=== PATIENT | male | born 1995 | race Caucasian/White ===

== ENCOUNTER 2021-08-08 08:15 | Emergency (ER) | payer OTHER, SELFPAY ==
[2021-08-08 08:15] VITALS: BP 148/82; PULSE 78; RESP 18; TEMP 36.3; O2SAT 100
--- NOTE | 2021-08-08 08:19 | ED.NECK ---
HPI - Neck Pain/Injury General Chief Complaint: Neck Pain/Injury Stated Complaint: Neck Pain Time Seen by Provider: 08/08/21 08:20 Source: patient, family and RN notes reviewed Mode of arrival: ambulatory Limitations: no limitations History of Present Illness HPI Narrative: 26-year-old male presents to the [facility] with complaints of right lateral neck pain, no midline tenderness. Patient reports that he sneezed this morning and felt a muscle pull in the right side of his neck. Also reports when he moves his neck up and down left and right that he feels a muscle spasm. No numbness or tingling in his extremities. No loss retention of bowel or bladder. Has full range of motion of both arms. Has full range of motion of neck but pain with movement up and down and with turning to the right. Patient denies any significant medical history MD complaint: neck pain Onset (ago): hour(s) Place: home Radiation: right lateral Severity: mild Quality: aching and spasming Duration: intermittent Exacerbating factors: movement of neck Context: other (Sneeze) Associated symptoms: none Treatments prior to arrival: none Related Data Allergies Allergy/AdvReac Type Severity Reaction Status Date / Time amoxicillin Allergy Mild Rash Verified 08/08/21 08:28 clindamycin Allergy Mild Rash Verified 08/08/21 08:28 Review of Systems Review of Systems: All systems reviewed & are unremarkable except as noted in HPI and below Constitutional: Constitutional: Reports no additional constitutional complaints, Denies chills, Denies fever(s), Denies headache(s) and Denies weakness Eyes: Eyes: Reports no additional eye complaints ENT: Reports system reviewed and no additional complaints, except as documented, Denies vertigo, Denies dizziness and Denies headache(s) Cardiovascular: Cardiovascular: Reports no additional cardiovascular complaints, Denies chest pain, Denies syncope and Denies dyspnea Respiratory: Respiratory: Reports no additional respiratory complaints, Denies cough and Denies dyspnea Gastrointestinal: Gastrointestinal: Reports no additional gastrointestinal complaints, Denies abdominal pain, Denies nausea and Denies vomiting Musculoskeletal: Musculoskeletal: Reports as per HPI, Denies arthralgias, Denies joint swelling, Denies muscle weakness, Reports neck pain (Right lateral), Denies numbness, Reports stiffness and Denies tingling Integumentary/Breasts: Skin/Breast: Reports system reviewed and no additional complaints, except as docu Neurologic: Reports system reviewed and no additional complaints, except as documented, Denies confusion, Denies vertigo, Denies dizziness, Denies syncope, Denies headache(s), Denies focal weakness, Denies numbness and Denies weakness Psychiatric: Psychiatric: Reports no additional psychiatric complaints and Denies confusion Allergic/Immunologic: Allergic/Immunologic: Reports no additional allergic/immunologic complaints PMFSH Past Medical History Medical History (Updated 08/08/21 @ 08:59 by Yue Crane) No significant medical problems Surgical History Surgical History (Updated 08/08/21 @ 08:59 by Yue Crane) H/O hand surgery Orthopedic, fingers 4, 5 Social History Social History (Updated 08/08/21 @ 08:59 by Yue Crane) Gender identity (if verbalized by the patient): Male Comments At the time of my signature, I reviewed and agree with the nursing past medical, surgical, social, and family history. There is no relevant family history pertinent to the patient complaint. Exam Const: General: healthy appearing, no acute distress and alert Nutritional Appearance: well nourished Orientation/consciousness: patient oriented x3 and No confusion Limitations: no limitations HENMT: Head: normal to inspection Ears: external ears normal, TM's normal bilaterally and EAC's normal Eyes: Conjunctivae: conjunctivae normal Pupils: Equal, round and reactive pupils present Neck: Neck: normal visua
== END 2021-08-08 08:35 | disposition home or self-care (01) ==
PROVIDERS: Emergency Provider Nurse Practitioner; PCP Family Medicine
DX: S16.1XXA Strain of muscle, fascia and tendon at neck level, initial encounter (principal); X50.9XXA Other and unspecified overexertion or strenuous movements or postures, initial encounter
CPT/HCPCS: 99203; G0463

== ENCOUNTER 2021-12-07 17:20 | Emergency (ER) | payer OTHER, SELFPAY ==
[2021-12-07 17:27] VITALS: BP 123/80; PULSE 82; RESP 16; TEMP 36.9; O2SAT 99
[2021-12-07 17:28] VITALS: BP 123/80; PULSE 82; RESP 16; TEMP 36.9; O2SAT 99
--- NOTE | 2021-12-07 17:41 | ED.URI ---
HPI - URI/Sore Throat General Chief Complaint: Upper Respiratory Infection Stated Complaint: SORE THROAT Source: patient Mode of arrival: ambulatory Limitations: no limitations History of Present Illness HPI Narrative: 26 y/o male presented for c/o sore throat and fever x4 days. States his fever was up to 100 at home, he took Tylenol. Also endorses sinus congestion and postnasal drainage. He denies cough, headache, nausea, or shortness of breath. Took 2 negative covid tests at home. Denies sick contacts. He has not vaccinated for COVID or flu. He is taken Zyrtec and Sudafed for symptoms. Rates pain 09/25. Hx strep throat 2018. Related Data Allergies Allergy/AdvReac Type Severity Reaction Status Date / Time amoxicillin Allergy Mild Rash Verified 08/08/21 08:28 clindamycin Allergy Mild Rash Verified 08/08/21 08:28 Review of Systems Review of Systems: CONSTITUTIONAL: Denies body aches EYES: Denies visual changes, redness, or discharge. ENT: See HPI you CARDIOVASCULAR: Denies chest pain, palpitations, or edema. RESPIRATORY: Denies cough or dyspnea. MUSCULOSKELETAL: Denies back pain, joint pain, or myalgia. NEUROLOGIC: Denies headache, numbness, tingling, or weakness. All systems reviewed & are unremarkable except as noted in HPI and below PMFSH Past Medical History Medical History No significant medical problems Surgical History Surgical History H/O hand surgery Orthopedic, fingers 4, 5 Social History Social History Gender identity (if verbalized by the patient): Male Comments At time of signature, I have reviewed and agree with nursing past medical, surgical, social and family history unless otherwise noted. Please see nursing chart for further information. There is no relevant family history pertinent to the presenting complaint Exam Narrative: GENERAL: Well-appearing EYES: EOMI. No redness or drainage. Conjunctivae normal. ENT: Mucous membranes pink and moist. No rhinorrhea. Right TM erythematous, Left TM normal. Throat erythematous, tonsils enlarged 2+ without exudate. Uvula midline. NECK: Normal AROM. Supple. No lymphadenopathy. CHEST: No respiratory distress. Clear to auscultation. HEART: Regular rate and rhythm. No murmur appreciated. Normal peripheral pulses. SKIN: Warm, dry, no rash. Capillary refill normal. Normal skin turgor. PSYCH: Normal affect. Course Course Emergency Course: Patient is aware of diagnosis, understands and agrees to treatment plan. Anticipatory guidance given. Patient agrees to follow-up as directed and is aware of reasons to seek care at the emergency department. Portions of this record may have been created with voice recognition software Level of Care: Express Care Visit Vital Signs Vital signs: Vital Signs Temperature 98.5 F 12/07/21 17:27 Pulse Rate 82 12/07/21 17:27 Respiratory Rate 16 12/07/21 17:27 Blood Pressure 123/80 12/07/21 17:27 Pulse Oximetry 99 12/07/21 17:27 Oxygen Delivery Room Air 12/07/21 17:27 Temperature 98.5 F 12/07/21 17:28 Pulse Rate 82 12/07/21 17:28 Respiratory Rate 16 12/07/21 17:28 Blood Pressure 123/80 12/07/21 17:28 Pulse Oximetry 99 12/07/21 17:28 Oxygen Delivery Room Air 12/07/21 17:28 MDM - URI/Sore Throat MDM Narrative Medical decision making narrative: strep positive. advised supportive treatments. He is in stable condition and appropriate for outpatient treatment and follow-up. Differential Diagnosis Differential diagnosis: Likely upper respiratory infection, sinusitis, viral infection and pharyngitis Discharge Plan Discharge Clinical Impression: Strep pharyngitis Patient Disposition: Home, Self-Care Condition: Stable Instructions: Antibiotic Form, Strep Throat (ED) Additional Instruc
== END 2021-12-07 17:58 | disposition home or self-care (01) ==
PROVIDERS: Emergency Provider Nurse Practitioner Family
DX: J02.0 Streptococcal pharyngitis (principal)
CPT/HCPCS: 87880; 99213; G0463

== ENCOUNTER 2025-05-11 16:50 | Emergency (ER) | payer OTHER, SELFPAY ==
[2025-05-11 16:59] VITALS: BP 132/88; PULSE 101; RESP 18; TEMP 36.6; O2SAT 99
--- NOTE | 2025-05-11 17:37 | ED_ITS ---
HPI - URI/Sore Throat General Chief Complaint: Upper Respiratory Infection Stated Complaint: URI Time Seen by Provider: 05/11/25 17:27 Source: patient and RN notes reviewed Mode of arrival: ambulatory Limitations: no limitations History of Present Illness HPI Narrative: 30-year-old male patient complains today of one-week history of nasal congestion and cough. States he had some postnasal drainage and sore throat that has since resolved since onset. Denies shortness of breath or fever. States symptoms have been improving since onset but he does have some persistent pain in his throat that occurs with coughing. He has tried Mucinex, [place], DayQuil, NyQuil with some improvement. Denies history of asthma or COPD. He is a nonsmoker. Related Data Allergies Allergy/AdvReac Type Severity Reaction Status Date / Time amoxicillin Allergy Mild Rash Verified 05/11/25 17:04 clindamycin Allergy Mild Rash Verified 05/11/25 17:04 PMFSH Past Medical History Medical History No significant medical problems Surgical History Surgical History H/O hand surgery Orthopedic, fingers 4, 5 Social History Social History Gender identity (if verbalized by the patient): Male Comments At time of signature, I have reviewed and agree with nursing past medical, surgical, social and family history unless otherwise noted. Please see nursing chart for further information. There is no relevant family history pertinent to the presenting complaint Exam Narrative: GENERAL: Well-appearing, well-nourished, and in no acute distress. HEAD: Normocephalic, atraumatic. EYES: EOMI. No redness or drainage. Conjunctivae normal. ENT: Mucous membranes pink and moist. Nares congested with rhinorrhea. TMs normal bilaterally. Throat normal. Uvula midline. NECK: Normal AROM. Supple. No lymphadenopathy. CHEST: No respiratory distress. Clear to auscultation. HEART: Regular rate and rhythm. No murmur appreciated. EXTREMITIES: Normal range of motion. No edema. SKIN: Warm, dry, no rash. Capillary refill normal. Normal skin turgor. NEURO: No focal deficits. Alert and oriented x3. Gait steady. PSYCH: Normal affect. No signs of depression or anxiety. Course Course Level of Care: Express Care Visit Vital Signs Vital signs: Vital Signs Temperature 97.8 F 05/11/25 16:59 Pulse Rate 101 H 05/11/25 16:59 Respiratory Rate 18 05/11/25 16:59 Blood Pressure 132/88 05/11/25 16:59 Pulse Oximetry 99 05/11/25 16:59 Oxygen Delivery Room Air 05/11/25 16:59 Temperature 97.8 F 05/11/25 16:59 Pulse Rate 101 H 05/11/25 16:59 Respiratory Rate 18 05/11/25 16:59 Blood Pressure 132/88 05/11/25 16:59 Pulse Oximetry 99 05/11/25 16:59 Oxygen Delivery Room Air 05/11/25 16:59 Reviewed MDM - URI/Sore Throat MDM Narrative Medical decision making narrative: 30-year-old male patient complains today of one-week history of nasal congestion and cough. States he had some postnasal drainage and sore throat that has since resolved since onset. Denies shortness of breath or fever. States symptoms have been improving since onset but he does have some persistent pain in his throat that occurs with coughing. He has tried Mucinex, Africa, DayQuil, NyQuil with some improvement. Denies history of asthma or COPD. He is a nonsm oker. Physical exam includes nasal congestion but is otherwise negative. Patient states his symptoms have improved. Recommend taking anti-inflammatories such as Aleve or ibuprofen to help with his throat discomfort. Patient declines prescription for cough medicine. Agrees with plan. Vital signs stable. Anticipatory guidance given. Differential Diagnosis Differential diagnosis: Likely upper respiratory infection, viral infection, bronchitis and other (Pneumonia) Critical Care Time Critical Care Time Critical Care Time: No Discharge Plan Discharge Clinical Impression: Upper respiratory infection Qualifiers: URI type: unspecified URI Qualified Code(s): J06.9 - Acute upper respiratory infection, unspecified Patient Disposition: Home Condition: Stable Instructions: Upper Respiratory Infection (DC) Additional Instructions: Your symptoms are likely due to a viral illness, which is not treated with antibiotics. Virus symptoms can last for up to 7-10days. Take ibuprofen for pain or fever. Rest and stay hydrated. Follow up with your PCP in 5 days if symptoms are not improving. Go to the ER immediately if you develop shortness of breath, difficulty swallowing, or any other concerning symptoms. Patient Language: Chadian Follow-up/Referrals: UNKNOWN,DOCTOR [Primary Care Provider] Time of Disposition: 17:40
--- OUTSIDE RECORDS SUMMARY | 2025-05-11 18:32 | XMS_ITS | Clinical Summary ---
Author Organization [facility] Address [address] [place] [address] Care Team Providers Care Director Of Home Care Hospice Name Role Phone Kathryn Jones MD Primary Care Provider [phone] Source Comments [facility],non-owned Affiliates and Associated Physician Practices is amultiple site organization consisting of ambulatory clinics and hospital sitesin [place], [place], [place]. This disclosure is being madepursuant to the Care Everywhere program and may not contain all information available regarding this patient. Last updated 18.[facility] [employer] Allergies Active Allergy Reactions Criticality Noted Date Comments Amoxicillin Rash Medium 07/08/2018 Clindamycin Rash Medium 07/17/2018 Rash was noted to back and chest several days after having started on clindamycin; any further order of this has been avoided Medications * Be aware that medications may not be up to date on this document. Alwaysverify current medications with the patient. ibuprofen (MOTRIN) 200 MG tablet Take 2 tablets by mouth every 6 hours as needed 60 tablet 1 0 Active acetaminophen (TYLENOL) 325 MG tablet Take 1 tablet by mouth every 4 hours as needed for Fever or Pain Maximum allowable Acetaminophen amount = 4 Grams (4000 mg) / 24 hours. 60 tablet 1 0 Active PREVIDENT 5000 BOOSTER PLUS 1.1 % 0 Active Active Problems Problem Noted Date Diagnosed Date Stiffness of finger joint of right hand 12/01/19 19 Open displaced fracture of m iddle phalanx of right ring finger Open displaced fracture of m iddle phalanx of right little finger Extensor tendon laceration of finger with open w ound Immunizations Immunization Administration Dates Next Due TDAP (7yrs+) 07/08/2018 Social History Tobacco Use Types Packs/Day Years Used Date Smoking Tobacco: Never Smokeless Tobacco: Current Chew Tobacco Cessation:Counseling Given: No Alcohol Use Standard Drinks/Week Comments Yes 0 (1 standard drink = 0.6 oz pur e alcohol) sometimes Sex and Gender Information Value Date Recorded Sex Assigned at Not on file 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 Gender Identity Not on file Sexual Orientation Not on file Last Filed Vital Signs Vital Sign Reading Time Taken Comments Blood Pressure 130/83 10/13/2019 9:14 AM CDT Pulse 71 10/13/2019 9:14 AM CDT Temperature 36.2 C (97.1 F) 10/13/2019 9:14 AM CDT Respiratory Rate 20 06/26/2019 10:00 AM EDUCATION TEACHER Oxygen Saturation 99% 10/13/2019 9:14 AM CDT Inhaled Oxygen Concentration - - Weight 77.1 kg (170 lb) 10/13/2019 9:14 AM CDT Height 170.2 cm (5' 7) 10/13/2019 9:14 AM CDT Body Mass Index 26.63 10/13/2019 9:14 AM CDT Plan of Treatment Health Maintenance Due Date Last Done Comments HIV SCREENING 01/16/2008 HEPATITIS C SCREENING 01/11/2011 HEPATITIS B VACCINE (1 of 3 - 19+ 3-dose series) 01/16/2012 HPV VACCINE (1 - 3-dose SCDM series) 01/16/2020 DEPRESSION SCREENING 06/18/2024 COVID-19 VACCINE (2024-2 6 season) 2025 INFLUENZA VACCINE (#1) 2025 DTAP/TDAP/TD VACCINES (2 - T d or Tdap) 07/08/2028 07/08/2018 ZOSTER VACCINE (1 of 2) 2043 HIB VACCINE Aged Out No longer eligi ble based on patient's age to complete this topic MENINGOCOCCAL (Group B) VACC INE SHARED DECISION-MAKING Aged Out No longer eligibl e based on patient's age to complete this topic MENINGOCOCCAL GROUPS A/C/Y/W VACCINE Aged Out No longer eligible b ased on patient's age to complete this topic PNEUMOCOCCAL VACCINE Aged Out No long er eligible based on patient's age to complete this topic Medical Devices Implanted Type Area Sourcing Assistant Device Identifier Shelf Expiration Date Model / Serial / Lot Wire K .045in 6in 2 Troc Smth Fx Strl Implanted:Qty: 2 on 07/17/2018 by Ziyad Bell MD at [facility] Right: Finger [employer] 04/04/2022 [id number] / / Description:RIGHT RING FINGE R Wire K .045in 6in 2 Troc Smth Fx Strl Implanted:Qty: 1 on 07/17/2018 by Ziyad Bell MD at [facility] Right: Finger [employer] 04/04/2022 [id number] / / Description:RIGHT LITTLE FIN LANDON Wire K 0.9mm Implanted:Qty: 1 on 07/17/2018 by Ziyad Bell MD at [facility] Right: Finger [employer] 09/21/2021 [id number] / / Description:RIGHT LITTLE FIN LANDON Insurance [id number] GENERIC [facility] PAYOR GENERIC ANTHEM PAYOR GENERIC PAYOR GENERIC ANTHEM Advance Directives * Full Code (Latest Code Status on File) Date Activated Date Inactivated Comments 07/17/2018 12:54 PM 07/17/2018 11:13 PM Care Teams Director Of Home Care Hospice Relationship Specialty Start Date End Date Kathryn Jones MD [address] [facility] [address] [id number] PCP - General 07/15/18
--- OUTSIDE RECORDS SUMMARY | 2025-05-11 18:32 | XMS_ITS | Encounter Summary ---
Author Organization 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 Historical Provider Final Res ult documented in this encounter Visit Diagnoses Not on filedocumented in this encounter Care Teams Swimming Pool Cleaner Relationship Specialty Start Date End Date Kathryn Jones MD PCP - General Family Medicine 01/28/19 documented as of this encounter
--- OUTSIDE RECORDS SUMMARY | 2025-05-11 18:32 | XMS_ITS | Encounter Summary ---
Author Organization 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 Historical Provider Final Res ult documented in this encounter Visit Diagnoses Not on filedocumented in this encounter Care Teams Logistics Planning Engineer Relationship Specialty Start Date End Date Kathryn Jones MD PCP - General Family Medicine 01/28/19 documented as of this encounter
--- OUTSIDE RECORDS SUMMARY | 2025-05-11 18:32 | XMS_ITS | Clinical Summary ---
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 Gender Identity Not on file Sexual Orientation Not on file Plan of Treatment Health Maintenance Due Date Last Done Comments Hepatitis C Virus (HCV) Screening 1993 TdaP Immunization 1993 Hepatitis B Immunization (1 of 3 - 19+ 3-dose series) 01/16/2012 Human Papillomavirus (HPV) Immunization (1 - 3-dose SCDM series) 01/16/2020 Influenza Immunization (#1) 2025 SARS-COV-2 Immunization ( season) 2025 Respiratory Syncytial Virus (RSV) Immunization (Adult) (1 - 1-dose 75+ series) 01/16/2068 Meningococcal Immunization (ACWY) Aged Out No longer eligible based on patient's age to complete this topic Pneumococcal Immunization Combined Aged Out No longer eligible based on patient's age to complete this topic Rotavirus Immunization Aged Out No lo nger eligible based on patient's age to complete this topic
--- OUTSIDE RECORDS SUMMARY | 2025-05-11 18:32 | XMS_ITS | Clinical Summary ---
Author Organization [facility] Address [address] [place] [id number] Care Team Providers Care Hand Lens Polisher Name Role Phone Chase Fuentes MD Primary Care Prov ider Allergies Active Allergy Reactions Criticality Noted Date Comments Amoxicillin Rash Low 10/16/2021 Clindamycin Rash Low 10/16/2021 Medications meloxicam (MOBIC) 15 MG tabletIndication s:Pain of right lower extremity Take 1 tablet (15 mg total) by mouth daily. 20 tablet 4 Active Additional Information Patient not taking.Reported on 11/26/2024 fexofenadine-pse udoephedrine ER ([facility]) 180-240 MG TABLET SR 24 HR 24 hr tabletIndication s:Allergic rhinitis, unspecified seasonality, unspecified trigger Take 180 mg by mouth daily. 30 tablet 1 5 Active Immunizations Immunization Administration Dates Next Due Dtap ([facility]-Immune) 03/22/2016 Tdap (Generic) 07/08/2018 Family History Medical History Relation Comments No Known Problems Father Hypertension Mother Relation Status Comments Father Alive Mother Alive Social History Tobacco Use Types Packs/Day Years Used Date Smoking Tobacco: Never Passive Smoke Exposure: Never Smokeless Tobacco: Current Chew Tobacco Cessation:Ready to Q uit: Not Asked; Counseling Given: Not Answered Alcohol Use Standard Drinks/Week Comments Yes 0 (1 standard drink = 0.6 oz pur e alcohol) few times monthly PHQ-2 Answer Date Recorded Patient Health Questionnaire-2 Score 0 11/26/2024 Sex and Gender Information Value Date Recorded Sex Assigned at Not on file Legal Sex Male 7:30 PM CDT Gender Identity Not on file Sexual Orientation Not on file Last Filed Vital Signs Vital Sign Reading Time Taken Comments Blood Pressure 130/81 11/26/2024 11:02 AM CDT Pulse 78 11/26/2024 11:02 AM CDT Temperature 36.9 C (98.5 F) 11/26/2024 11:02 AM CDT Respiratory Rate 16 01/10/2024 7:39 AM CDT Oxygen Saturation 96% 11/26/2024 11:02 AM CDT Inhaled Oxygen Concentration - - Weight 85.7 kg (189 lb) 11/26/2024 11:02 AM CDT Height 167.6 cm (5' 6) 01/10/2024 7:39 AM CDT Body Mass Index 30.51 01/10/2024 7:39 AM CDT Plan of Treatment Health Maintenance Due Date Last Done Comments Annual Physical 01/16/1996 Hepatitis C 2011 Hepatitis B Vaccines (1 of 3 - 19+ 3-dose series) 01/16/2012 HPV Vaccines (1 - 3-dose SCD M series) 01/16/2020 COVID-19 Vaccine (1 - 2024-2 6 season) 2025 Influenza Adult (#1) 2025 DTaP, Tdap and Td Vaccines ( 3 - Td or Tdap) 07/08/2028 07/08/2018, 03/22/2016 PHQ-2 ([facility]) Completed 11/26/2024 Hepatitis A Vaccines Aged Out No long er eligible based on patient's age to complete this topic Meningococcal B Vaccine Aged Out No l onger eligible based on patient's age to complete this topic Meningococcal Vaccine Aged Out No fartun rosa eligible based on patient's age to complete this topic Pneumococcal Vaccine: Pediatrics (0 to 5 Years) and At-Risk Patients (6 to 49 Years) Aged Out No longer eligible b ased on patient's age to complete this topic RSV Immunizations Under 20 Months Aged Out No longer eligible b ased on patient's age to complete this topic [place] [address] [place] [address] Care Teams Hand Lens Polisher Relationship Specialty Start Date End Date Laz VII, Chase Zamorano MD [address] [place], [place] [id number] PCP - General FAMILY PRACTICE 03/02/25
--- OUTSIDE RECORDS SUMMARY | 2025-05-11 18:32 | XMS_ITS | Clinical Summary ---
Author Organization [facility] Address [address] [place] [address] Care Team Providers Care Warehouse Packaging Supervisor Name Role Phone Kathryn Jones MD Primary Care Provider [phone] Allergies Active Allergy Reactions Criticality Noted Date Comments Amoxicillin Rash Medium 07/08/2018 rash Clindamycin Rash Medium 07/17/2018 Rash was noted to back and chest several days after having started on clindamycin; any further order of this has been avoided Medications No known medications Active Problems Problem Noted Date Diagnosed Date Hypogonadism in male 07/24/2022 Chronic fatigue and malaise 07/24/2022 Irritability 07/24/2022 Dyslipidemia (high LDL; low HDL) 07/24/2022 COVID-19 virus infection 06/22/2021 Assessment & Plan (06/29/2021 6:17 AM AREA SAFETY MANAGER): New Order zpack, medrol pack, proair Cough 06/22/2021 Assessment & Plan (06/29/2021 6:17 AM AREA SAFETY MANAGER): New Order zpack, medrol pack, proair Order CXR Chest discomfort 09/14/2020 Epigastric abdominal pain 09/14/2020 Assessment & Plan (10/05/2020 8:53 AM CDT): Completely resolved. May use dexilant PRN Assessment & Plan (09/30/2020 6:06 AM CDT): New Likely GI Order dexilant, carafate Order labs Burning chest pain 09/14/2020 Assessment & Plan (09/30/2020 6:07 AM CDT): New Likely GI Order dexilant, carafate Order labs Adult general medical exam 09/14/2020 Extensor tendon laceration of finger with open w ound 01/29/2019 Open displaced fracture of m iddle phalanx of right little finger 01/29/2019 Open displaced fracture of m iddle phalanx of right ring finger 01/29/2019 Eye fatigue, bilateral 01/29/2019 Assessment & Plan (01/29/2019 11:18 AM CDT): Encouraged good sleep hygiene, ok for OTC sleep aid PRN. Limit screen time and use sunglasses/light filtering glasses. Ok for heat/ice eye masks. Since also having some dryness and allergy type symptoms, will trial an antihistamine eye drop. 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 Seizure 01/12/2016 Immunizations Immunization Administration Dates Next Due DTaP 03/22/2016 Influenza, Unspecified 03/18/2022(Deferred: Maryjane ent Refused) Tdap 07/08/2018 Surgical History Surgery Date Site/Laterality Comments CYST REMOVAL behind left ear HAND SURGERY 03/18/2017 - 04/17/2017 R hand 5th metocarpal repair FINGER SURGERY pins in 4 and 5 metocarpal Medical History Medical History Date Comments ADD (attention deficit disorder) Seizure (HCC) Family History Medical History Relation Name Comments No Known Problems Father Hypertension Mother Relation Name Status Comments Brother 1 Alive Brother 2 Alive Father Alive Mother Alive Social History Tobacco Use Types Packs/Day Years Used Date Smoking Tobacco: Never Smokeless Tobacco: Current Snuff, Chew Alcohol Use Standard Drinks/Week Comments Yes 6 (1 standard drink = 0.6 oz pur e alcohol) AUDIT-C Answer Date Recorded Frequency of Alcohol Consumption 2-4 times a mon th 01/29/2019 Average Number of Drinks 5 or 6 019 Frequency of Binge Drinking Not on file 01/16 PHQ-2 Answer Date Recorded PHQ-2 Total Score (If total score is 3 or more points, staff should administer the PHQ-9) 0 07/24/2022 Sex and Gender Information Value Date Recorded Sex Assigned at Not on file Legal Sex Male 5:59 PM AREA SAFETY MANAGER Gender Identity Male 06/22/2021 1:43 PM AREA SAFETY MANAGER Sexual Orientation Straight 06/22/2021 1: 43 PM AREA SAFETY MANAGER Last Filed Vital Signs Vital Sign Reading Time Taken Comments Blood Pressure 122/90 07/24/2022 11:15 AM AREA SAFETY MANAGER Pulse 81 07/24/2022 11:15 AM AREA SAFETY MANAGER Temperature 36.7 C (98.1 F) 07/24/2022 11:15 AM AREA SAFETY MANAGER Respiratory Rate 16 07/24/2022 11:15 AM AREA SAFETY MANAGER Oxygen Saturation 98% 07/24/2022 11:15 AM AREA SAFETY MANAGER Inhaled Oxygen Concentration - - Weight 80.7 kg (178 lb) 07/24/2022 11:15 AM AREA SAFETY MANAGER Height 170.2 cm (5' 7) 07/24/2022 11:15 AM AREA SAFETY MANAGER Body Mass Index 27.88 07/24/2022 11:15 AM AREA SAFETY MANAGER Plan of Treatment Health Maintenance Due Date Last Done Comments Hepatitis C Screening 1993 Varicella Vaccines (1 of 2 - 13+ 2-dose series) 2006 Hepatitis B Screening 2011 Regular Well Visit/Exam 18-64 2011 HPV Vaccines (1 - 3-dose SCD M series) 01/16/2020 Depression Screening 07/24/2023 07/24/2022, 01/29/2019 Influenza Vaccine (#1) 2025 DTaP/Tdap/Td Vaccine (3 - Td or Tdap) 07/08/2028 07/08/2018, 03/22/2016 Pneumococcal vaccine <65 Aged Out No longer eligible based on patient's age to complete this topic Insurance [facility] [place] [address] [place] [address] [facility] Care Teams Warehouse Packaging Supervisor Relationship Specialty Start Date End Date Kathryn Jones MD PCP - General Family Medicine 01/28/19
== END 2025-05-11 17:44 | disposition home or self-care (01) ==
PROVIDERS: Emergency Provider Nurse Practitioner
DX: J06.9 Acute upper respiratory infection, unspecified (principal)
CPT/HCPCS: 99213; G0463